=== PATIENT | female | born 2000 | race Caucasian/White ===

== ENCOUNTER 2023-02-20 11:32 | Outpatient (CLI) | payer OTHER, SELFPAY | END 2023-02-20 11:33 | disposition home or self-care (01) | LOC: LKVREF 11:32 | PROVIDERS: PCP Physician Assistant Medical; Visit Provider Emergency Medicine | DX: R74.01 Elevation of levels of liver transaminase levels (principal); R68.89 Other general symptoms and signs | CPT/HCPCS: 84443 ==

== ENCOUNTER 2023-04-29 12:36 | Outpatient (CLI) | payer OTHER, SELFPAY ==
[2023-04-30 00:53] LABS: Chlamydia DNA Amplified* NOT DETECTED (No Detected); GC DNA Amplified* NOT DETECTED (No Detected)
== END 2023-04-29 12:37 | disposition home or self-care (01) ==
PROVIDERS: PCP Physician Assistant Medical; Visit Provider Registered Nurse
DX: Z11.3 Encounter for screening for infections with a predominantly sexual mode of transmission (principal)
CPT/HCPCS: 87086; 87491; 87591

== ENCOUNTER 2023-05-24 15:40 | Outpatient (CLI) | payer OTHER, SELFPAY ==
--- NOTE | 2023-05-24 16:00 | CRLHL7_ITS ---
For Patients: As a result of the Century Cures Act, medical imaging exams and procedure reports are released immediately into your electronic medical record. You may view this report before your referring provider. If you have questions, please contact your health care provider. CLINICAL HISTORY: Displacement of IUD TECHNIQUE: Real time, carlos scale images were acquired of the pelvis using a transabdominal and transvaginal approach. Color Doppler analysis was performed of the ovaries. FINDINGS: Uterus measures 8.3 x 2.5 x 5.1 centimeters. IUD in the endometrial cavity in satisfactory position. Endometrium suboptimally visualized ovaries are unremarkable. Right ovary measures 2.7 x 2.6 x 2.8 centimeters left ovary measures 3.5 x 2.1 x 2.3 centimeters. Color Doppler demonstrates blood flow to the ovaries. IMPRESSION: IUD in the endometrial cavity in satisfactory position. Dictated by Poornima Cardozo MD @ 05/26/2023 6:51:39 AM (Electronically Signed)
== END 2023-05-24 15:41 | disposition home or self-care (01) ==
LOC: US 15:41
PROVIDERS: PCP Physician Assistant Medical; Visit Provider Registered Nurse
DX: Z30.431 Encounter for routine checking of intrauterine contraceptive device (principal)
CPT/HCPCS: 76830

== ENCOUNTER 2025-04-15 14:01 | Outpatient (CLI) | payer BC, SELFPAY ==
[2025-04-15 22:54] LABS: Chlamydia DNA Amplified* NOT DETECTED (No Detected); GC DNA Amplified* NOT DETECTED (No Detected)
== END 2025-04-15 14:02 | disposition home or self-care (01) ==
PROVIDERS: PCP Nurse Practitioner Family; Visit Provider Nurse Practitioner Family
DX: K50.90 Crohn's disease, unspecified, without complications (principal); Z11.3 Encounter for screening for infections with a predominantly sexual mode of transmission; Z13.6 Encounter for screening for cardiovascular disorders
CPT/HCPCS: 80061; 83516; 86038; 86225; 87491; 87591